=== PATIENT | male | born 1975 | race Caucasian/White ===

== ENCOUNTER 2021-04-28 14:48 | Emergency (ER) | payer BC ==
[~2021-04-28] VITALS: Ht 188 cm; Wt 118.2 kg
[2021-04-28] MEDS ORDERED: NORCO 325 MG-51 TAB PO ×3 (15:14→16:23)
[2021-04-28] MEDS ORDERED: PRINZIDE 12.5 M1 TA1 PO (15:14)
[2021-04-28 16:27] LABS: BASO % 0.3 % (0.0-2.0); EOS % 0.3 % (0.0-4.0); GRAN # 8.8 K/mm3 (1.4-6.5); GRAN % 73.1 % (42.2-75.2); HEMATOCRIT 41.5 % (42.0-52.0); HEMOGLOBIN 13.6 g/dl (13.5-18.0); LYMPH % 16.6 % (20.0-51.0); MEAN CELL VOLUME 87 fl (80.0-100.0); MEAN CORPUSCULAR HEMOGLOBIN 29 pg (27-31); MEAN CORPUSCULAR HGB CONC 33 g/dl (33.0-37.0); MEAN PLATELET VOLUME 9.3 fl (7.4-10.4); MONO # 1.1 K/mm3 (0.1-0.6); MONO % 9.2 % (1.7-9.3); PLATELET COUNT 355 K/mm3 (130-400); RED BLOOD COUNT 4.76 M/mm3 (4.20-5.60); REDCELL DISTRIBUTION WIDTH-CV 12.4 % (11.5-14.5)
[2021-04-28 16:44] LABS: C-REACTIVE PROTEIN 14.27 mg/dL (0.00-0.50); CALCIUM 9.8 mg/dL (8.4-10.2); CREATININE, serum 1.02 mg/dL (0.72-1.25); POTASSIUM 3.5 mmol/L (3.5-4.5)
[2021-04-28 16:48] LABS: ERYTHROCYTE SEDIMENTATION RATE 16 mm/hr (0-15)
[2021-04-28 17:16] LABS: COLLECTION METHOD CLEAN CATCH
[2021-04-28 17:27] LABS: PH 6 (5-8); SQUAMOUS EPITHELIAL None Seen /hpf (0-10); URINE APPEARANCE Clear (CLEAR/HAZY); URINE BACTERIA None Seen /hpf (NONE SEEN); URINE BILIRUBIN Negative (NEGATIVE); URINE BLOOD Negative (NEGATIVE); URINE COLOR Yellow (YELLOW); URINE GLUCOSE 1+ (NEGATIVE); URINE KETONE Negative (NEGATIVE); URINE LEUKOCYTE ESTERASE Negative (NEGATIVE); URINE NITRATE Negative (NEGATIVE); URINE PROTEIN(semi-quant) Negative (NEGATIVE); URINE RBC 0-2 /hpf (0-2)
[2021-04-28 18:29] LABS: SYNOVIAL FL. MONONUCLEAR 7.3 % (0-75); SYNOVIAL FLUID RBC 0 /mm3 (0-0)
[2021-04-28 18:34] LABS: SYNOVIAL FLUID WBC 62292 /mm3 (200-600)
[2021-04-28 18:36] LABS: SYNOVIAL FLUID APPEARANCE TURBID; SYNOVIAL FLUID COLOR YELLOW
[2021-04-28] MEDS ORDERED: CEPHALEXIN500 M1 PO (19:09)
[2021-04-28 19:55] VITALS: BP 132/68; PULSE 84; TEMP 98.9
== END 2021-04-28 19:55 | disposition home or self-care (01) ==
LOC: COL.ER 14:48
PROVIDERS: Emergency Medicine
DX: M25.562 Pain in left knee (principal); R60.0 Localized edema; D72.829 Elevated white blood cell count, unspecified; R79.82 Elevated C-reactive protein (CRP); I10 Essential (primary) hypertension; Z20.822 Contact with and (suspected) exposure to COVID-19; Z79.899 Other long term (current) drug therapy
CPT/HCPCS: J7030